=== PATIENT | male | born 1990 | race Caucasian/White ===

== ENCOUNTER 2021-04-14 21:34 | Inpatient (IN) | payer OTHER, MEDICAID, SELFPAY ==
--- NOTE | 2021-04-14 21:33 | DI.RAD.S_ITS ---
PROCEDURE: XR PELVIS 1-2V INDICATIONS: TRAUMA TECHNIQUE: Single-view of the pelvis acquired. COMPARISON: None. FINDINGS: Bones: No definite fractures or dislocations. No suspicious bony lesions. Soft tissues: Visualized bowel gas pattern is normal. No suspicious soft tissue calcifications. IMPRESSION: 1. No definite fracture or dislocation. Dictated by: Jw De Leon M.D. on 04/14/2021 at 22:57 Approved by: Jw De Leon M.D. on 04/14/2021 at 22:57
[2021-04-14 21:35] VITALS: BP 91/52; PULSE 86; RESP 20; TEMP 35; O2SAT 95
--- NOTE | 2021-04-14 21:36 | DI.RAD.S_ITS ---
PROCEDURE: XR CHEST 1V INDICATIONS: trauma TECHNIQUE: One view of the chest was acquired. COMPARISON: [facility], CT, CT CHEST ABD PEL W CON, 04/14/2021, 21:49. [facility], CR, CHEST 1 VIEW, 04/27/2008, 9:22. FINDINGS: Surgical changes and devices: None. Lungs and pleura: Trace left pneumothorax seen on concurrent CT not definitely identified on the current study. Minimal left pleural effusion seen on CT also not well seen on the current exam. There are few patchy indistinct bilateral opacities, left greater than right, which are nonspecific but may reflect pulmonary contusions. Mediastinum: Mediastinal contours appear normal. Heart size is normal. Bones and chest wall: There are mildly displaced fractures of the right 3rd through 6th ribs laterally. There is a minimally displaced fracture of the left 7th rib posteriorly. A mildly displaced fracture of the left distal clavicle is demonstrated. Overlying soft tissues appear unremarkable. IMPRESSION: 1. Patchy indistinct opacities in the lungs bilaterally are nonspecific but may reflect pulmonary contusions. 2. Bilateral rib fractures and distal left clavicular fracture. 3. Trace left pneumothorax and minimal left pleural effusions seen on the concurrent CT not well visualized on the current exam. Recommend correlation with concurrent CT. Dictated by: Jw De Leon M.D. on 04/14/2021 at 22:38 Approved by: Jw De Leon M.D. on 04/14/2021 at 22:40
--- NOTE | 2021-04-14 21:36 | DI.CT.S_ITS ---
PROCEDURE: CT CERVICAL SPINE WO CON INDICATIONS: Trauma TECHNIQUE: Noncontrast 3 mm thick sections acquired from the skull base to the T4 level. Sagittal and coronal reformats were then constructed. For radiation dose reduction, the following was used: automated exposure control, adjustment of mA and/or kV according to patient size. COMPARISON: [facility], CT, CT CHEST ABD PEL W CON, 04/14/2021, 21:49. FINDINGS: Image quality: There is motion artifact limiting evaluation. Bones: No definite fractures or subluxation. Visualized superior ribs appear intact. Soft tissues: Prevertebral soft tissues are normal in thickness. No paravertebral hematomas. The visualized lungs demonstrate a small left pleural effusion. There is a small left apical pneumothorax. IMPRESSION: 1. No definite fracture or subluxation with evaluation limited by motion artifact. 2. Small left apical pneumothorax and left pleural effusion partially visualized. Recommend correlation with concurrent study of the chest abdomen pelvis. Dictated by: Jw De Leon M.D. on 04/14/2021 at 22:05 Approved by: Jw De Leon M.D. on 04/14/2021 at 22:08
--- NOTE | 2021-04-14 21:36 | DI.CT.S_ITS ---
PROCEDURE: CT CHEST ABD PEL W CON INDICATIONS: Trauma TECHNIQUE: After the administration of intravenous contrast, 5 mm thick sections acquired from the lung apices to the symphysis. 2.5 mm thick coronal and sagittal reformats were acquired. Additional 7 mm thick coronal maximum intensity projection (MIP) reformats acquired through the lungs. Optional 10-minute delayed imaging may be performed from the kidneys to the bladder. For radiation dose reduction, the following was used: automated exposure control, adjustment of mA and/or kV according to patient size. COMPARISON: [facility], CT, CT CERVICAL SPINE WO CON, 04/14/2021, 21:49. FINDINGS: Image quality: There is motion artifact as well as beam hardening artifact limiting evaluation. CHEST: Lungs: There is a minimal left apical pneumothorax. Posterior ground-glass opacities are demonstrated within the lungs bilaterally suggestive of atelectasis but there are also suspected small pulmonary contusions posteriorly in the left lung. No definite pulmonary lacerations, with evaluation limited by motion artifact. There is a small left pleural effusion or hemothorax. No right effusion or right pneumothorax. Mediastinum: No mediastinal hematomas. Heart size is normal. No pericardial effusion. Thoracic aorta and pulmonary arteries demonstrate normal size and enhancement. No mediastinal or hilar adenopathy. Esophagus is normal in caliber. No hiatal hernia. Chest wall: There is a mildly displaced fracture of the left 7th rib posteriorly. There are also mildly displaced fractures of the right 3rd through 6th ribs posterolaterally. There is a minimally displaced non depressed sternal fracture. More inferiorly, there is also deformity the right aspect of the sternum suggestive of a prior sternal fracture. No retrosternal hematomas. There is a mildly displaced fracture of the distal left clavicle. No subcutaneous emphysema. No axillary or supraclavicular adenopathy. Thyroid gland demonstrates no discrete nodules. ABDOMEN: Solid organs: Liver is normal in size and enhancement, without lacerations. Gallbladder appears within normal limits without calcified gallstones. Biliary system is non-dilated. Pancreas enhances normally, without transection. Spleen is normal in size and enhancement, without lacerations. No adrenal hematomas. Both kidneys enhance normally, without hydronephrosis or lacerations. Peritoneum and bowel: No free fluid or air. Unenhanced bowel loops demonstrate normal wall thickness and caliber. Nodes and vessels: No retroperitoneal or mesenteric adenopathy. Aorta and inferior vena cava are normal in size and enhancement. Miscellaneous: No ventral hernias. PELVIS: Genitourinary: Bladder wall thickness is normal. Miscellaneous: There are posterior subcutaneous areas of fat stranding in the right gluteal region consistent with a soft tissue contusion. No inguinal hernias or adenopathy. Bones: Pelvic ring and hip joints appear intact. No vertebral compression fractures. IMPRESSION: 1. Trace left apical pneumothorax. 2. Minimal left hemothorax or pleural effusion. 3. Suspected small posterior left pulmonary contusions. 4. Minimally displaced acute sternal fracture as well as likely sequelae of a prior fracture in the inferior sternum. 5. Fractures of the left 7th and right 3rd through 6th ribs. 6. Mildly displaced fracture of the distal left clavicle. Findings discussed with Dr. Monae on 04/14/2021 at 10:15 p.m.. Dictated by: Jw De Leon M.D. on 04/14/2021 at 22:08 Approved by: Jw De Leon M.D. on 04/14/2021 at 22:19
--- NOTE | 2021-04-14 21:36 | DI.CT.S_ITS ---
PROCEDURE: CT HEAD/BRAIN WO CON INDICATIONS: Trauma TECHNIQUE: Noncontrast 4.5 mm thick angled axial sections acquired from the foramen magnum to the vertex, with coronal and sagittal reformats. For radiation dose reduction, the following was used: automated exposure control, adjustment of mA and/or kV according to patient size. COMPARISON: None. FINDINGS: Image quality: There is motion artifact markedly limiting evaluation. CSF spaces: Basal cisterns are patent. No extra-axial fluid collections. Ventricles are grossly normal in size. Brain: No definite intracranial hemorrhage, mass, or mass effect. Evaluation of the moss-white matter junction is limited by motion artifact. Skull and face: No definite fractures of the calvarium or visualized facial bones, with evaluation limited by motion artifact. Sinuses: Visualized sinuses and mastoids are clear. IMPRESSION: 1. Markedly limited study due to motion artifact demonstrates no definite acute intracranial abnormality. Dictated by: Jw De Leon M.D. on 04/14/2021 at 22:02 Approved by: Jw De Leon M.D. on 04/14/2021 at 22:05
[2021-04-14 22:12] VITALS: PULSE 83; RESP 20; O2SAT 92
[2021-04-14 22:18] LABS: Add Manual Diff / Slide Review NO; Basophils Absolute Auto 100 /uL (0-100); Basophils Percent Auto 0.2 % (0-2); Eosinophils Absolute Auto 0 /uL (0-450); Eosinophils Percent Auto 0.1 % (2-4); Hematocrit 42.6 % (41-53); Hemoglobin 14.4 g/dL (13.5-17.5); Lymphocytes Absolute Auto 1600 /uL (1100-4500); Lymphocytes Percent Auto 7.4 % (25-40); Mean Corpuscular HGB Conc 33.8 % (30-36); Mean Corpuscular Volume 88.8 fL (80-100); Monocytes Absolute Auto 1400 /uL (0-900); Monocytes Percent Auto 6.6 % (3-14); Neutrophils Absolute Auto 18400 /uL (1500-7000); Neutrophils Percent Auto 85.7 % (50-75); Platelet Count 353 X10^3/uL (150-400); Red Cell Distribution Width 14.1 % (11.6-14.8); White Blood Cell Count 21.5 X10^3/uL (4.5-11.0)
[2021-04-14 22:23] LABS: INR 1.2 (0.9-1.3); Prothrombin Time 14.1 SECONDS (10.1-12.7)
[2021-04-14 22:26] LABS: PTT Partial Thromboplastin Tim 31 SECONDS (26.4-36.2)
[2021-04-14] MEDS: SODIUM CHLORIDE 0.9% 1,000 ML 1000 ML IV (22:26)
[2021-04-14] MEDS: HYDROMORPHONE 1 MG INJ IV (22:26)
[2021-04-14 22:30] VITALS: BP 95/51; PULSE 82; RESP 12; O2SAT 94
[2021-04-14 22:34] LABS: Creatine Kinase 2402 U/L (55-170)
[2021-04-14 22:36] LABS: Alanine Aminotransferase 33 IU/L (<50); Albumin 3.8 g/dL (3.5-5.0); Albumin Globulin Ratio 1.3 (1.0-2.8); Alkaline Phosphatase 62 U/L (38-126); Aspartate Aminotransferase 78 IU/L (17-59); BUN Creatinine Ratio 13.2 (6-22); Bilirubin Total 0.4 mg/dL (0.2-1.3); Blood Urea Nitrogen 7 mg/dL (9-20); Carbon Dioxide 26 mmol/L (22-32); Chloride 108 mmol/L (98-107); Estimated Glomerular Filt Rate > 60.0 mL/min (>60); Ethanol (ETOH) 268 mg/dL; Glucose 131 mg/dL (70-100); HEMOLYSIS 24 (0-50); Lipase 38 U/L (23-300); Potassium 3.4 mmol/L (3.4-5.1); Sodium 144 mmol/L (137-145); Total Protein 6.8 g/dL (6.3-8.2)
[2021-04-14 22:38] LABS: COVID19 -Nasal RAPID Negative (Negative)
[2021-04-14 22:40] LABS: Troponin I < 0.012 ng/mL (0.01-0.034)
[2021-04-14 22:44] LABS: Lactate (Lactic Acid) 4.1 mmol/L (0.7-2.1)
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
[2021-04-14 23:00] VITALS: BP 99/55; PULSE 81; RESP 19; O2SAT 97
[2021-04-14 23:14] LABS: CKMB % Relative Index 1.4 % (1.5-5.0)
[2021-04-14 23:30] VITALS: BP 91/53; PULSE 82; RESP 14; O2SAT 95
[2021-04-14 23:59] LABS: COVID19 - ADMIT (NP swab/PCR) Negative (Negative)
[2021-04-15] VITALS (38 sets, daily range): BP systolic 102–127; BP diastolic 55–73; PULSE 74–114; RESP 10–20; TEMP 36.1–36.4; O2SAT 90–100; BMI 27.1
[2021-04-15 00:11] LABS: Ur Creatinine Normal (Normal); Ur Specific Gravity Normal (Normal); Urine pH Normal (Normal)
[2021-04-15 00:12] LABS: UR Morphine/Opiate cutoff 300 Negative (Negative); Urine Amphetamines Negative (Negative); Urine Barbiturates Negative (Negative); Urine Benzodiazepines Negative (Negative); Urine Cocaine Negative (Negative); Urine MDMA Negative (Negative); Urine Methadone Negative (Negative); Urine Methamphetamines Negative (Negative); Urine Oxycodone Negative (Negative); Urine Phencyclidine Negative (Negative); Urine Tetrahydrocannabinol Negative (Negative); Urine Tricyclic Antidepressant Negative (Negative)
[2021-04-15 00:13] LABS: Reflexed Lactate in 2 Hours Y
[2021-04-15 01:03] LABS: Lactate 2HR (Lactic Acid Rflx) 2.6 mmol/L (0.7-2.1)
[2021-04-15 01:31] LABS: Bacteria Urine None Seen; Culture Indicated Urine Cult Not Indicated; RBC Urine None Seen (0-5/HPF); Urine Comments Microscopic Normal; WBC Urine None Seen (0-5/HPF)
[2021-04-15] MEDS: LACTATED RINGERS 1,000 ML 125 ML IV ×2 (01:46→10:09)
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
[2021-04-15] MEDS: HYDROMORPHONE 2 MG INJ 1 MG IV ×4 (05:45→23:47)
[2021-04-15] MEDS: ACETAMINOPHEN 325 MG TABLET 650 MG PO ×2 (06:39→11:06)
--- NOTE | 2021-04-15 08:27 | DI.RAD.S_ITS ---
PROCEDURE: XR CHEST 2V INDICATIONS: ptx TECHNIQUE: 2 views of the chest were acquired. COMPARISON: [facility], CR, XR CHEST 1V, 04/14/2021, 21:33. FINDINGS: Surgical changes and devices: None. Lungs and pleura: Low lung volumes. No visible pneumothorax. Slightly increasing alveolar opacity in the right medial lower lung with thickening of the fissures. No significant pleural effusion visible. Mediastinum: Mediastinal contours are normal. Heart size is normal. Bones and chest wall: Several minimally displaced right rib fractures and nondisplaced left posterior 7th rib fracture. Mildly displaced left distal clavicle fracture with AC joint separation. IMPRESSION: 1. No visible left pneumothorax or large effusion. 2. Probable increasing atelectasis at the right medial lower lung, likely due to splinting and low lung volumes. 3. Ribs and left clavicle fractures as described. Dictated by: Kira Blum M.D. on 04/15/2021 at 11:31 Approved by: Kira Blum M.D. on 04/15/2021 at 11:36
--- NOTE | 2021-04-15 11:01 | PM.PN.EICU ---
Subjective Subjective :: This patient was seen via real time interactive two-way audiovisual telecommunication. Current Medications Current Medications Medications: Home Medications Ciprofloxacin Hydrochloride (Cipro) 0 PO * [place] DOSE/FREQUENCY #0 04/26/08 [History] Visit Medications (administered) Generic Name Dose Route Start Last Admin Trade Name Freq PRN Reason Stop Dose Admin Acetaminophen 650 mg 04/15/21 01:04/15/21 06:39 Acetaminophen 325 Mg Tablet PO 650 mg Q6HR PRN Administration Fever/Mild Pain (1-3) Hydromorphone HCl 1 mg 04/15/21 01:27 04/15/21 10:10 Hydromorphone 2 Mg Inj IV 1 mg Q4HR PRN Administration Pain, Severe (7-10) Lactated Ringer's 1,000 mls @ 125 mls/hr 04/15/21 01:04/15/21 10:09 Lactated Ringers IV 125 mls/hr CONT BELEN Administration Objective Labs Result Diagrams: 04/14/21 22:10 04/14/21 22:10 Labs: Laboratory Results - last 24 hr 04/14/21 04/14/21 04/14/21 22:10 22:10 22:10 WBC RBC Hgb Hct MCV MCH MCHC RDW Plt Count Neut % (Auto) Lymph % (Auto) [place] % (Auto) Eos % (Auto) Baso % (Auto) Neut # (Auto) Lymph # (Auto) [place] # (Auto) Eos # (Auto) Baso # (Auto) PT 14.1 H INR 1.2 APTT 31 Sodium Potassium Chloride Carbon Dioxide BUN Creatinine Estimated GFR BUN/Creatinine Ratio Glucose Lactate 4.1 H* Calcium Total Bilirubin AST ALT Alkaline Phosphatase Total Creatine Kinase 2402 H CK-MB (CK-2) 34.10 H CK-MB (CK-2) Rel Index 1.4 L Troponin I < 0.012 Total Protein Albumin Globulin Albumin/Globulin Ratio Lipase Urine RBC Urine WBC Urine Bacteria Ur Culture Indicated? Micro UA Comment Nasal Screen MRSA (PCR) U Opiates 300ng/mL cut Ur Oxycodone Screen Urine Methadone Screen Ur Barbiturates Screen U Tricyclic Antidepress Ur Phencyclidine Scrn Ur Amphetamines Screen U Methamphetamines Scrn Ur MDMA Scrn (Ecstasy) U Benzodiazepines Scrn Urine Cocaine Screen U Marijuana (THC) Screen Ethyl Alcohol SARS-CoV-2 (PCR) 04/14/21 04/14/21 04/14/21 22:10 22:10 22:10 WBC 21.5 H RBC 4.80 Hgb 14.4 Hct 42.6 MCV 88.8 MCH 30.0 MCHC 33.8 RDW 14.1 Plt Count 353 Neut % (Auto) 85.7 H Lymph % (Auto) 7.4 L [place] % (Auto) 6.6 Eos % (Auto) 0.1 L Baso % (Auto) 0.2 Neut # (Auto) 34873 H Lymph # (Auto) 1600 [place] # (Auto) 1400 H Eos # (Auto) 0 Baso # (Auto) 100 PT INR APTT Sodium 144 Potassium 3.4 Chloride 108 H Carbon Dioxide 26 BUN 7 L Creatinine 0.53 L Estimated GFR > 60.0 BUN/Creatinine Ratio 13.2 Glucose 131 H Lactate Calcium 9.0 Total Bilirubin 0.4 AST 78 H ALT 33 Alkaline Phosphatase 62 Total Creatine Kinase CK-MB (CK-2) CK-MB (CK-2) Rel Index Troponin I Total Protein 6.8 Albumin 3.8 Globulin 3.0 Albumin/Globulin Ratio 1.3 Lipase 38 Urine RBC Urine WBC Urine Bacteria Ur Culture Indicated? Micro UA Comment Nasal Screen MRSA (PCR) U Opiates 300ng/mL cut Ur Oxycodone Screen Urine Methadone Screen Ur Barbiturates Screen U Tricyclic Antidepress Ur Phencyclidine Scrn Ur Amphetamines Screen U Methamphetamines Scrn Ur MDMA Scrn (Ecstasy) U Benzodiazepines Scrn Urine Cocaine Screen U Marijuana (THC) Screen Ethyl Alcohol 268 H SARS-CoV-2 (PCR) Negative 04/14/21 04/15/21 04/15/21 23:15 00:04 00:04 WBC RBC Hgb Hct MCV MCH MCHC RDW Plt Count Neut % (Auto) Lymph % (Auto) [place] % (Auto) Eos % (Auto) Baso % (Auto) Neut # (Auto) Lymph # (Auto) [place] # (Auto) Eos # (Auto) Baso # (Auto) PT INR APTT Sodium Potassium Chloride Carbon Dioxide BUN Creatinine Estimated GFR BUN/Creatinine Ratio Glucose Lactate Calcium Total Bilirubin AST ALT Alkaline Phosphatase Total Creatine Kinase CK-MB (CK-2) CK-MB (CK-2) Rel Index Troponin I Total Protein Albumin Globulin Albumin/Globulin Ratio Lipase Urine RBC None seen Urine WBC None seen Urine Bacteria None seen Ur Culture Indicated? Cult not indicated Micro UA Comment Microscopic normal Nasal Screen MRSA (PCR) U Opiates 300ng/mL cut Negative Ur Oxycodone Screen Negative Urine Methadone Screen Negative Ur Barbiturates Screen Negative U Tricyclic Antidepress Negative Ur Phencyclidine Scrn Negative Ur Amphetamines Screen Negative U Methamphetamines Scrn Negative Ur MDMA Scrn (Ecstasy) Negative U Benzodiazepines Scrn Negative Urine Cocaine Screen Negative U Marijuana (THC) Screen Negative Ethyl Alcohol SARS-CoV-2 (PCR) Negative 04/15/21 04/15/21 00:40 01:30 WBC RBC Hgb Hct MCV MCH MCHC RDW Plt Count Neut % (Auto) Lymph % (Auto) [place] % (Auto) Eos % (Auto) Baso % (Auto) Neut # (Auto) Lymph # (Auto) [place] # (Auto) Eos # (Auto) Baso # (Auto) PT INR APTT Sodium Potassium Chloride Carbon Dioxide BUN Creatinine Estimated GFR BUN/Creatinine Ratio Glucose Lactate 2.6 H Calcium Total Bilirubin AST ALT Alkaline Phosphatase Total Creatine Kinase CK-MB (CK-2) CK-MB (CK-2) Rel Index Troponin I Total Protein Albumin Globulin Albumin/Globulin Ratio Lipase Urine RBC Urine WBC Urine Bacteria Ur Culture Indicated? Micro UA Comment Nasal Screen MRSA (PCR) Negative for mrsa U Opiates 300ng/mL cut Ur Oxycodone Screen Urine Methadone Screen Ur Barbiturates Screen U Tricyclic Antidepress Ur Phencyclidine Scrn Ur Amphetamines Screen U Methamphetamines Scrn Ur MDMA Scrn (Ecstasy) U Benzodiazepines Scrn Urine Cocaine Screen U Marijuana (THC) Screen Ethyl Alcohol SARS-CoV-2 (PCR) Exam Vital Signs (past 8 hours): - 04/15/21 03:07 04/15/21 03:30 04/15/21 04:00 Pulse Rate 87 89 90 Respiratory Rate 16 17 17 Blood Pressure 117/62 Pulse Oximetry 97 98 96 04/15/21 04:30 04/15/21 05:00 04/15/21 05:30 Pulse Rate 93 H 99 H 114 H Respiratory Rate 17 17 18 Blood Pressure 110/56 L Pulse Oximetry 94 94 96 04/15/21 06:00 04/15/21 06:01 04/15/21 06:30 Pulse Rate 95 H 97 H 95 H Respiratory Rate 14 16 17 Blood Pressure 125/60 Pulse Oximetry 96 96 95 04/15/21 07:00 04/15/21 07:30 04/15/21 08:00 Pulse Rate 96 H 100 H 101 H Respiratory Rate 18 17 17 Blood Pressure 114/63 118/59 L Pulse Oximetry 94 94 92 04/15/21 08:30 Pulse Rate 103 H Respiratory Rate 18 Blood Pressure Pulse Oximetry 91 Oxygen Delivery Method Nasal Cannula Oxygen Flow Rate 0 Assessment & Plan Assessment & Plan narrative: patient seen and examined with bedside nurse and provider chart/labs/imagigng reviewed currently afebrile HD stable, mild tachycardia no resp distress appears comfortable does not appear in withdrawal plan -pain control -incentive spirometer -surgery eval -ciwa protocol -thiamine/folate -torrey ivf while npo -minimize opiods use -gi/dvt ppx -call teleICU if condition changes Time Spent With Patient Critical Care time: I spent a total of [] minutes of critical care time on this patient's care today; this time is exclusive of procedural time.
[2021-04-15] MEDS: THIAMINE 100 MG TABLET PO (11:11)
[2021-04-15 16:18] LABS: Folate 13.5 ng/mL (2.76-20.0)
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
[2021-04-15] MEDS: KETOROLAC 30 MG/ML VIAL IV (18:20)
[2021-04-15] MEDS: IBUPROFEN 600 MG TABLET PO ×2 (18:20→23:47)
--- NOTE | 2021-04-15 22:28 | PC.NURSE ---
2000- Patient requests to be allowed to sleep. Assessment deferred to next medication order. Will monitor
[2021-04-16] VITALS (34 sets, daily range): BP systolic 95–132; BP diastolic 56–79; PULSE 77–114; RESP 13–34; TEMP 36.7–36.8; O2SAT 92–99
[2021-04-16] MEDS: IBUPROFEN 600 MG TABLET PO ×4 (05:02→23:38)
[2021-04-16] MEDS: HYDROMORPHONE 2 MG INJ 1 MG IV (05:02)
[2021-04-16 05:30] LABS: Add Manual Diff / Slide Review NO; Basophils Absolute Auto 100 /uL (0-100); Basophils Percent Auto 0.7 % (0-2); Eosinophils Absolute Auto 100 /uL (0-450); Eosinophils Percent Auto 1.1 % (2-4); Hematocrit 35.6 % (41-53); Hemoglobin 12.2 g/dL (13.5-17.5); Lymphocytes Absolute Auto 2100 /uL (1100-4500); Lymphocytes Percent Auto 21.6 % (25-40); Mean Corpuscular HGB Conc 34.3 % (30-36); Mean Corpuscular Hemoglobin 30.3 PG (26-34); Mean Corpuscular Volume 88.4 fL (80-100); Monocytes Absolute Auto 1100 /uL (0-900); Monocytes Percent Auto 11.2 % (3-14); Neutrophils Absolute Auto 6500 /uL (1500-7000); Neutrophils Percent Auto 65.4 % (50-75); Platelet Count 239 X10^3/uL (150-400); Red Blood Cell Count 4.03 X10^6/uL (4.5-5.9); Red Cell Distribution Width 14.5 % (11.6-14.8); White Blood Cell Count 9.9 X10^3/uL (4.5-11.0)
[2021-04-16 05:34] LABS: BUN Creatinine Ratio 19.1 (6-22); Blood Urea Nitrogen 13 mg/dL (9-20); Calcium 8.7 mg/dL (8.4-10.2); Carbon Dioxide 33 mmol/L (22-32); Chloride 104 mmol/L (98-107); Estimated Glomerular Filt Rate > 60.0 mL/min (>60); Glucose 123 mg/dL (70-100); HEMOLYSIS < 15 (0-50); Magnesium 1.7 mg/dL (1.6-2.3); Phosphorous 2.8 mg/dL (2.5-4.5); Sodium 137 mmol/L (137-145)
[2021-04-16] MEDS: HYDROMORPHONE 1 MG INJ IV ×3 (08:54→21:48)
[2021-04-16] MEDS: ACETAMINOPHEN 325 MG TABLET 650 MG PO (08:54)
[2021-04-16] MEDS: MAGNESIUM CHLORIDE 64 MG TABLET 128 MG PO (08:54)
[2021-04-16] MEDS: THIAMINE 100 MG TABLET PO (08:54)
[2021-04-16] MEDS: LORazepam 2 MG/ML INJ (09:24)
[2021-04-16] MEDS: MULTIVITAMIN 1 TABLET 1 TAB PO (09:24)
[2021-04-16] MEDS: NICOTINE 14 PATCH 14 MG TOP (09:24)
[2021-04-16] MEDS: FOLIC ACID 1 MG TABLET PO (09:24)
[2021-04-16] MEDS: LORazepam 2 MG/ML INJ IV ×4 (10:29→16:59)
[2021-04-16] MEDS: KETOROLAC 30 MG/ML VIAL IV ×2 (10:29→16:58)
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
--- NOTE | 2021-04-16 14:45 | PC.NURSE ---
Call to Dr Santos for increasing CIWA symptoms, order set added for CIWA protocol and Ativan PRN. Nicotine patch placed
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
[2021-04-16] MEDS: chlordiazePOXIDE 25 MG CAPSULE PO ×2 (15:19→21:37)
--- NOTE | 2021-04-16 16:37 | PM.PN.1 ---
Subjective Subjective Date Patient Seen: 04/16/21 Time Patient Seen: 16:37 Interval history: Heart rate is elevated today and is showing signs of withdrawal. Exam Vital Signs (past 8 hours): - 04/16/21 09:00 04/16/21 09:30 04/16/21 09:44 Pulse Rate 82 92 H 96 H Respiratory Rate 19 17 34 H Blood Pressure 108/78 112/65 Pulse Oximetry 98 95 04/16/21 10:00 04/16/21 10:30 04/16/21 10:49 Pulse Rate 96 H 96 H 101 H Respiratory Rate 17 14 20 Blood Pressure 112/65 128/75 Pulse Oximetry 92 95 04/16/21 11:00 04/16/21 11:30 04/16/21 11:43 Pulse Rate 100 H 114 H 104 H Respiratory Rate 18 25 H 20 Blood Pressure 128/75 117/64 Pulse Oximetry 94 04/16/21 12:00 04/16/21 12:30 04/16/21 13:00 Pulse Rate 108 H 111 H 111 H Respiratory Rate 20 13 18 Blood Pressure 117/64 105/67 Pulse Oximetry 04/16/21 13:30 04/16/21 13:58 04/16/21 14:00 Pulse Rate 113 H 114 H 113 H Respiratory Rate 22 30 H 18 Blood Pressure 132/79 132/79 Pulse Oximetry 04/16/21 14:30 04/16/21 15:00 04/16/21 15:30 Pulse Rate 112 H 111 H 108 H Respiratory Rate 19 20 22 Blood Pressure 125/70 Pulse Oximetry 95 95 04/16/21 16:00 Pulse Rate 111 H Respiratory Rate 22 Blood Pressure 95/60 Pulse Oximetry 96 Oxygen Delivery Method Room Air Oxygen Flow Rate 0 Const General: No acute distress Limitations: behavioral limitations Objective Labs Result Diagrams: 04/16/21 04:55 04/16/21 04:55 Labs: Laboratory Results - last 24 hr 04/16/21 04/16/21 04:55 04:55 WBC 9.9 D RBC 4.03 L Hgb 12.2 L Hct 35.6 L MCV 88.4 MCH 30.3 MCHC 34.3 RDW 14.5 Plt Count 239 Neut % (Auto) 65.4 D Lymph % (Auto) 21.6 L Grand % (Auto) 11.2 Eos % (Auto) 1.1 L Baso % (Auto) 0.7 Neut # (Auto) 6500 Lymph # (Auto) 2100 Grand # (Auto) 1100 H Eos # (Auto) 100 Baso # (Auto) 100 Sodium 137 Potassium 4.0 Chloride 104 Carbon Dioxide 33 H BUN 13 Creatinine 0.68 Estimated GFR > 60.0 BUN/Creatinine Ratio 19.1 Glucose 123 H Calcium 8.7 Phosphorus 2.8 Magnesium 1.7 PFSH Social History household members: none Smoking Status: Current every day smoker alcohol intake: current Assessment & Plan Assessment and plan (1) Closed fracture of distal clavicle: Problem details: Left distal clavicle fracture, closed. At this time fracture pattern. The minimal to non operative treatment recommend use of a sling full-time for the next 4 weeks except may come out for gentle pendulum exercises to avoid stiffness and may come out for hygiene. Would have him utilize sling follow up with Orthopedics in 1-2 weeks for repeat clavicle x-rays Status: Acute (2) Alcohol intoxication: Problem details: Withdrawal management per primary team. Qualifiers: Complication of substance-induced condition: uncomplicated Qualified Code(s): F10.920 - Alcohol use, unspecified with intoxication, uncomplicated Status: Acute Plan [facility] protocol for impending alcohol withdrawal Ortho consult for left clavicle fracture Time Spent With Patient Critical Care time: I spent a total of [] minutes of critical care time on this patient's care today; this time is exclusive of procedural time.
[2021-04-17] VITALS (16 sets, daily range): BP systolic 126–146; BP diastolic 62–87; PULSE 92–118; RESP 14–27; TEMP 36.6; O2SAT 94–97
[2021-04-17] MEDS: HYDROMORPHONE 1 MG INJ IV ×3 (03:37→12:13)
--- NOTE | 2021-04-17 04:07 | PC.NURSE ---
Addendum entered by Nancy Villalpando R.N. 04/17/21 04:11: Edit to note below: IV in LFA was present at the start of shift but was never documented. This RN added to IV assessment but was not sure on the date or time of placement. Original Note: Patient pulled out IV in RH around 0000. Tip was intact and site did not bleed. Patient has LFA IV that is still working and is saline locked. Pt has been resting in bed on and off throughout the shift. When RN enters the room patient will ask for Ativan, however, quickly falls back to sleep. Will monitor and administer medications per JUN.
[2021-04-17] MEDS: KETOROLAC 30 MG/ML VIAL IV ×2 (04:44→13:59)
[2021-04-17] MEDS: IBUPROFEN 600 MG TABLET PO ×2 (06:33→11:46)
[2021-04-17] MEDS: NICOTINE 14 PATCH 14 MG TOP (08:44)
[2021-04-17] MEDS: MULTIVITAMIN 1 TABLET 1 TAB PO (08:44)
[2021-04-17] MEDS: FOLIC ACID 1 MG TABLET PO (08:44)
[2021-04-17] MEDS: THIAMINE 100 MG TABLET PO (08:44)
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
--- NOTE | 2021-04-17 09:23 | DI.RAD.S_ITS ---
PROCEDURE: XR KNEE LT 1TO2V INDICATIONS: Pain trauma TECHNIQUE: 2 views of the knee were acquired. COMPARISON: None. FINDINGS: Limited given portable technique, specifically the lateral view is under penetrated. Bones: No fractures or dislocations. No suspicious bony lesions. Soft tissues: No joint effusion within limitations of this examination and obliquity of the lateral view. No suspicious soft tissue calcifications. Mild soft tissue prominence anteriorly. IMPRESSION: No acute osseous abnormality. Dictated by: Moises Gonzalez D.O. on 04/17/2021 at 8:58 Approved by: Moises Gonzalez D.O. on 04/17/2021 at 9:01
[2021-04-17] MEDS: LORazepam 2 MG/ML INJ IV ×3 (09:36→13:59)
--- NOTE | 2021-04-17 12:18 | CM.DPC ---
Addendum entered by Jaylin Perez R.N. 04/17/21 16:01: KYLER and HAIDER Capone were asked to meet with the patient who was angry, screaming at staff and being very aggressive. Security was called as a stand by while KYLER and HAIDER met with the patient at the bedside. Patient was visibility frustrated and stated he was in so much pain. Patient has been going to a suboxone clinic on [facility] and has an appointment there tomorrow but wants suboxone now to DC with from the hospital. HAIDER Capone explained to the patient that [facility] does not do Suboxone prescriptions and he would need to follow up with his appointment tomorrow on [place] or call [facility] that can possibly do a next day appointment. patients DR did agree to prescribed 24 hours worth of pain medication to get him to his appointment tomorrow. patient calmed down with this information and began to participate in DC planning conversation again. KYLER called [facility] for the patient and set the patient up with one night at the [facility] per the [employer] voucher program. patient does not have an ID currently so KYLER worked with the [facility] to get the hotel to waive the need for an ID and use his hospital band. patient agreed to this plan. Patients Aunt was at the bedside and was obviously frustrated with the patients situation and was expecting [facility] to provide an unrealistic intermission coordinator housing plan for the patient. KYLER and HAIDER Capone explained that we are not able to find senior living housing option from an acute care hospital. Care Management department supplies resources and helps with establish a plan with the patient but it is the responsibility of the patient to peruse those resource in finding adequate housing after discharge. patient was showing very little interest in any of the resources provided other than wanting pain medication and going to his appointment tomorrow. Patient Aunt was upset that SW did not call her yesterday when the patient arrived like the patients brother told her they would. HAIDER Capone explained that there is no SW consult or note in the chart from the patient or medical staff requesting SW involvement so was unaware of the need to contact her. Also CM and JEREMI do not call patients families with out the expressed approval from the patient when they are decisional. patients aunt agreed to drive the patient to the pharmacy to get his prescriptions filled and to the [facility] for the night. Patient was at this point requesting pain medication before he Discharges because he stated he was in a lot of pain. CM relayed that information to the patients nurse. CM provided the patient with written directions to the [facility] as well as written information for [facility] and [facility] that both have suboxone clinics. patient stated understanding. Jaylin Hagen [facility] Original Note: DCP continued: CM met with the patient at the bedside and gave him resources for warm shelters in [facility] and [facility]. Patient stated he doesn't plan to go to a group home but he kept the resources. CM gave the patient information on the [facility]'s motel voucher program and their phone number so he can call and set up a hotel room for a night or two. CM also gave the patient information about [facility] inpatient rehab in [place], which the patient stated he has been to before and liked it, So he could call and maybe get into their rehab. CM called [facility] in [place] to check on their availability but there new rule is they do not take patients who have not used within the last 24 hours so this is not an option for the patient. CM gave [facility] information so the patient can work on reestablishing with them and [facility] information. CM asked the patient what his plans are for DC he said he is going to go back to [facility]. CM asked if he has a place to go there. He said no. patients aunt Jacinda was at the bedside. CM asked if the plan is to go home with family patients aunt Jacinda said NO! Patient said no I will be homeless with the plan of calling [facility] for a motel voucher while he looks at other options for now. CM up dated the patients nurse and the MD about his plan. Jaylin Rivera
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
[2021-04-17] MEDS: OXYCODONE IR 5 MG TABLET PO (16:30)
--- NOTE | 2021-04-17 16:40 | P.PN_ITS ---
Subjective Subjective Date Patient Seen: 04/17/21 Interval history: Patient is complaining of pain all over but otherwise medically stable stable. He has history of homelessness, alcohol and opiate substance abuse and previously on Suboxone. He is not having any signs of significant ETOH withdrawal. Exam Vital Signs (past 8 hours): - 04/17/21 09:00 04/17/21 09:30 04/17/21 09:56 Pulse Rate 103 H 112 H 103 H Respiratory Rate 18 25 H 14 Blood Pressure 133/79 Pulse Oximetry 96 95 04/17/21 10:00 04/17/21 10:30 04/17/21 11:00 Pulse Rate 114 H 118 H 113 H Respiratory Rate 20 19 18 Blood Pressure 132/67 133/65 Pulse Oximetry 95 95 94 04/17/21 11:30 04/17/21 12:00 04/17/21 12:30 Pulse Rate 110 H 110 H 116 H Respiratory Rate 23 18 20 Blood Pressure 146/66 H Pulse Oximetry 96 96 95 04/17/21 14:19 Pulse Rate 100 H Respiratory Rate 14 Blood Pressure Pulse Oximetry Oxygen Delivery Method Room Air Oxygen Flow Rate 0 Narrative Exam Narrative: General: Alert and cooperative and in mild degree of discomfort Lungs: Breathing nonlabored Objective Labs Result Diagrams: 04/16/21 04:55 04/16/21 04:55 COUNT INCLUDES THE [facility] Medical History (Updated 04/17/21 @ 09:28 by Rachelle Medellin MD) Alcoholism Opioid use disorder Social History household members: none Smoking Status: Current every day smoker alcohol intake: current substance use type: heroin and opiates Assessment & Plan Assessment & Plan narrative: Patient admitted with multiple rib, sternal and clavicle fractures who is m edically stable for discharge. Not in active alcohol withdrawal. He was provided resources by social services assistant/care management. Time Spent With Patient Critical Care time: I spent a total of [] minutes of critical care time on this patient's care today; this time is exclusive of procedural time.
--- NOTE | 2021-04-17 16:46 | PC.NURSE ---
Discharge Note Patient A&O, discharge information reviewed with patient and aunt, all questions/concerns addressed as best possible but this RN. Patient reminded to pear picker prescriptions at [facility], reminded to follow-up with orthopedics in 1 to 2 weeks. PIV discontinued and assisted to dress patient, placed arm in sling. All belongings packed and given to patient. Patient did not sign discharge paperwork. Patient taken down via wheelchair to POV with aunt.
== END 2021-04-17 16:30 | disposition home or self-care (01) | DRG 200 ==
LOC: ED 23:27 → ICU 04-15 08:06
PROVIDERS: Internal Medicine Critical Care Medicine; Admitting Provider Surgery; Emergency Provider Emergency Medicine; Referring Provider Emergency Medicine; Visit Provider Surgery
DX: S27.0XXA Traumatic pneumothorax, initial encounter (principal); S22.41XA Multiple fractures of ribs, right side, initial encounter for closed fracture; S22.20XA Unspecified fracture of sternum, initial encounter for closed fracture; F10.239 Alcohol dependence with withdrawal, unspecified; S42.032A Displaced fracture of lateral end of left clavicle, initial encounter for closed fracture; F10.129 Alcohol abuse with intoxication, unspecified; Y90.8 Blood alcohol level of 240 mg/100 ml or more; S00.81XA Abrasion of other part of head, initial encounter; F17.210 Nicotine dependence, cigarettes, uncomplicated; Z20.822 Contact with and (suspected) exposure to COVID-19; M25.562 Pain in left knee; V89.2XXA Person injured in unspecified motor-vehicle accident, traffic, initial encounter; Y92.410 Unspecified street and highway as the place of occurrence of the external cause
CPT/HCPCS: 36415; 70450; 71045; 71260; 72125; 72170; 73560; 74177; 80048; 80053; 80305; 80320; 81003; 81015; 82550; 82553; 82746; 82962; 83605; 83690; 83735; 84100; 84484; 85025; 85610; 85730; 87635; 87797; 93005; 93010; 94762; 96361; 96374; 99221; 99231; 99238; 99285; C9803; J1170; J1885; J2060; Q9967

== ENCOUNTER 2021-06-08 18:20 | Emergency (ER) | payer OTHER, MEDICAID, SELFPAY ==
[2021-04-15 14:17] VITALS: BMI 27.1
[2021-06-08 18:24] VITALS: PULSE 92; RESP 24; TEMP 36.5; O2SAT 96
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
== END 2021-06-08 18:35 | disposition home or self-care (01) ==
PROVIDERS: Emergency Provider Emergency Medicine
DX: F11.10 Opioid abuse, uncomplicated (principal)
CPT/HCPCS: 99281

== ENCOUNTER 2021-07-13 13:34 | Observation (INO) | payer OTHER, MEDICAID, SELFPAY ==
[2021-04-15 14:17] VITALS: BMI 27.1
[2021-07-13] VITALS (12 sets, daily range): BP systolic 108–134; BP diastolic 62–90; PULSE 83–92; RESP 14–18; TEMP 36.8; O2SAT 95–100; BMI 28.8
--- NOTE | 2021-07-13 13:40 | DI.RAD.S_ITS ---
PROCEDURE: XR CHEST 1V INDICATIONS: suspected sepsis TECHNIQUE: One view of the chest was acquired. COMPARISON: [facility], CR, XR CHEST 2V, 04/15/2021, 10:35. FINDINGS: Surgical changes and devices: None. Lungs and pleura: Lungs are clear. No pleural effusions or pneumothorax. Mediastinum: Mediastinal contours appear normal. Heart size is normal. Bones and chest wall: No suspicious bony lesions. Overlying soft tissues appear unremarkable. IMPRESSION: No acute cardiopulmonary pathology. Dictated by: Navarro Carlson M.D. on 07/13/2021 at 13:52 Approved by: Navarro Carlson M.D. on 07/13/2021 at 13:53
--- NOTE | 2021-07-13 13:45 | ED.DENTAL ---
HPI - Dental/Oral General Chief complaint: Dental/Oral Stated complaint: Tooth abcess Time Seen by Provider: 07/13/21 13:37 Source: patient and EMS Mode of arrival: EMS History of Present Illness HPI Narrative: Patient is a 31-year-old male his history of substance abuse including alcohol and smoking opiates and meth presents today with right-sided facial swelling. He actually says that he has had facial swelling for couple of weeks but overnight got significantly worse. He has no difficulty swallowing or speaking but has obvious large amount of swelling on his face. He has not had any fever or chills. EMS on [facility] reports that he had an [place] lactate of 5 they gayatri blood cultures and gave him 2 g of Rocephin in the field. He has been hemodynamically stable for transport. He is now also complaining of some chest discomfort as well. He is requesting his Suboxone. He denies fever or chills. Related Data Home Medications Medication Instructions Recorded Confirmed sertraline 25 mg tablet (Zoloft) 25 mg PO DAILY 07/13/21 07/13/21 Allergies Allergy/AdvReac Type Severity Reaction Status Date / Time acetaminophen [From Vicodin] Allergy Unknown Verified 07/13/21 13:44 codeine Allergy Unknown Verified 07/13/21 13:44 hydrocodone [From Vicodin] Allergy Unknown Verified 07/13/21 13:44 Penicillins Allergy Unknown Verified 07/13/21 13:44 Review of Systems Review of Systems Narrative: GENERAL: Denies chills, fatigue, malaise, fever, sweats, travel HEENT: See HPI RESPIRATORY: Denies dyspnea, cough, wheezing, hemoptysis, sputum. CARDIOVASCULAR: Denies chest pain, palpitations, orthopnea, edema GASTROINTESTINAL: Denies nausea, vomiting, abdominal pain, diarrhea, constipation, melena. : Denies dysuria, frequency, incontinence, hematuria, urinary retention, flank pain. MUSCULOSKELETAL: Denies weakness, joint pain, or bony pain SKIN: No rash, no erythema, no pruritus NEUROLOGIC: Denies weakness, dizziness, headache, numbness, change in speech, confusion PSYCHIATRIC: No concerning psychosocial issues. 12 point review of systems is negative except for those stated above and HPI Patient History Medical History Alcoholism Opioid use disorder Social History household members: none Smoking Status: Current every day smoker alcohol intake: current substance use type: heroin and opiates Smoking Status: Current every day smoker alcohol intake frequency: 0-2 drinks per day Substance Use Type: does not use Exam Initial Vital Signs Initial Vital Signs: Vital Signs Temperature 98.3 F 07/13/21 13:35 Pulse Rate 86 07/13/21 13:35 Respiratory Rate 18 07/13/21 13:35 Blood Pressure 132/90 07/13/21 13:35 Pulse Oximetry 99 07/13/21 13:35 GENERAL: 31-year-old male who has significant right-sided facial swelling HEENT: Head atraumatic significant facial swelling no erythema no obvious dental abscess or facial abscess managing own secretions no stridor CARDIOVASCULAR: Regular rate and rhythm without murmurs, rubs or gallops. RESPIRATORY: Breath sounds equal bilaterally, no wheezes rales or rhonchi. EXTREMITIES: Normal range of motion, no clubbing or edema. Neurovascularly intact NEUROLOGICAL: Alert and oriented x4.Normal gait and speech. SKIN: Warm, dry, no laceration, no petechiae, no rashes or lesions. Course Orders Ordered: Acetaminophen (Acetaminophen 325 Mg Tablet) 975 mg PO Q8H PRN PRN Reason: Pain, Mild (1-3) Buprenorphine/Naloxone (Buprenorphine/Naloxone 8mg/2mg 1 Tab) 1 tab SL TID [facility] Last Admin: 07/13/21 22:50 Dose: 1 tab Documented by: Admin: 07/13/21 17:50 Dose: 1 tab Documented by: ABIDA Sodium Chloride (Normal Saline 0.9%) 1,000 mls @ 100 mls/hr IV CONT [facility] Last Admin: 07/13/21 17:49 Dose: 100 mls/hr Documented by: ABIDA Clindamycin Phosphate (Cleocin) 600 mg in 50 mls @ 50 mls/hr IV Q8H [facility] Last Admin: 07/14/21 01:35 Dose: 50 mls/hr Documented by: Infusion: 07/13/21 19:45 Dose: 0 mls/hr Documented by: Admin: 07/13/21 17:30 Dose: 50 mls/hr Documented by: ABIDA Levofloxacin (Levaquin) 750 mg in 150 mls @ 100 mls/hr IV Q24H [facility] Last Infusion: 07/13/21 21:50 Dose: 0 mls/hr Documented by: Admin: 07/13/21 20:20 Dose: 100 mls/hr Documented by: CTRSHELLY Vancomycin HCl/Dextrose (Vancomycin) 1,500 mg in 300 mls @ 200 mls/hr IV Q8H [facility] Last Infusion: 07/14/21 00:26 Dose: 0 mls/hr Documented by: Admin: 07/13/21 22:51 Dose: 200 mls/hr Documented by: CTRSHELLY Ibuprofen (Ibuprofen 400 Mg Tablet) 800 mg PO Q8HR PRN PRN Reason: Pain, Mild (1-3) Last Admin: 07/13/21 22:48 Dose: 800 mg Documented by: CTRSHELLY Ondansetron HCl (Ondansetron 4 Mg/2 Ml Inj) 4 mg IV Q8HR PRN PRN Reason: Nausea And Vomiting Sertraline HCl (Sertraline 50 Mg Tablet) 25 mg PO DAILY [facility] Vancomycin HCl (Vancomycin Peak) 1 request MISC 1730 [facility] Stop: 07/14/21 17:31 Vancomycin HCl (Vancomycin Trough) 1 request MISC 1430 [facility] Stop: 07/14/21 14:31 Discontinued Medications Acetaminophen (Acetaminophen 325 Mg Tablet) 975 mg PO NOW ONE Stop: 07/13/21 13:50 Last Admin: 07/13/21 13:56 Dose: 975 mg Documented by: CRISTI Sodium Chloride (Normal Saline 0.9%) 1,000 mls @ 1,000 mls/hr IV BOLUS ONE Stop: 07/13/21 14:39 Last Infusion: 07/13/21 15:30 Dose: 0 mls/hr Documented by: Admin: 07/13/21 14:22 Dose: 1,000 mls/hr Documented by: JAZLYN Vancomycin HCl/Dextrose (Vancomycin) 1,500 mg in 300 mls @ 200 mls/hr IV NOW ONE Stop: 07/13/21 16:39 Last Infusion: 07/13/21 17:06 Dose: 0 mls/hr Documented by: Admin: 07/13/21 15:20 Dose: 200 mls/hr Documented by: JAZLYN Ibuprofen (Ibuprofen 400 Mg Tablet) 800 mg PO NOW ONE Stop: 07/13/21 13:50 Last Admin: 07/13/21 13:56 Dose: 800 mg Documented by: CRISTI Vital Signs Vital signs: Vital Signs - 8 hr 07/13/21 13:35 07/13/21 13:58 07/13/21 14:00 Temperature 98.3 F Pulse Rate 86 92 H 83 Respiratory Rate 18 14 Blood Pressure 132/90 134/88 Pulse Oximetry 99 99 100 07/13/21 14:12 07/13/21 14:30 07/13/21 15:00 Temperature Pulse Rate 90 90 84 Respiratory Rate 17 16 16 Blood Pressure 132/82 124/75 116/76 Pulse Oximetry 100 98 98 07/13/21 15:30 07/13/21 16:00 Temperature Pulse Rate 87 86 Respiratory Rate 15 16 Blood Pressure 116/73 115/69 Pulse Oximetry 96 95 MDM - Dental/Oral Lab Data Result diagrams: 07/13/21 14:50 07/13/21 14:50 Labs: Lab Results 07/13/21 07/13/21 07/13/21 Range/Units 14:50 14:50 14:50 WBC 11.2 H (4.5-11.0) X10^3/uL RBC 4.61 (4.5-5.9) X10^6/uL Hgb 13.8 (13.5-17.5) g/dL Hct 40.1 L (41-53) % MCV 87.0 (80-100) fL MCH 29.9 (26-34) PG MCHC 34.4 (30-36) % RDW 13.1 (11.6-14.8) % Plt Count 287 (150-400) X10^3/uL Neut % (Auto) 76.4 H (50-75) % Lymph % (Auto) 15.3 L (25-40) % Spink % (Auto) 7.4 (3-14) % Eos % (Auto) 0.6 L (2-4) % Baso % (Auto) 0.3 (0-2) % Neut # (Auto) 8600 H (5728-2215) /uL Lymph # (Auto) 1700 (2997-7809) /uL Spink # (Auto) 800 (0-900) /uL Eos # (Auto) 100 (0-450) /uL Baso # (Auto) 0 (0-100) /uL Sodium 136 L (137-145) mmol/L Potassium 3.8 (3.4-5.1) mmol/L Chloride 101 (98-107) mmol/L Carbon Dioxide 29 (22-32) mmol/L BUN 6 L (9-20) mg/dL Creatinine 0.42 L (0.66-1.25) mg/dL Estimated GFR > 60.0 (>60) mL/min BUN/Creatinine Ratio 14.3 (6-22) Glucose 99 (70-100) mg/dL Lactate 1.2 (0.7-2.1) mmol/L Calcium 8.3 L (8.4-10.2) mg/dL Total Bilirubin 0.4 (0.2-1.3) mg/dL AST 20 (17-59) IU/L ALT 12 (<50) IU/L Alkaline Phosphatase 81 (38-126) U/L Total Protein 7.0 (6.3-8.2) g/dL Albumin 3.7 (3.5-5.0) g/dL Globulin 3.3 (1.7-4.1) g/dL Albumin/Globulin Ratio 1.1 (1.0-2.8) Lipase 17 L (23-300) U/L Procalcitonin < 0.03 (<0.5) ng/mL Ethyl Alcohol ( - 10) mg/dL 07/13/21 Range/Units 14:50 WBC (4.5-11.0) X10^3/uL RBC (4.5-5.9) X10^6/uL Hgb (13.5-17.5) g/dL Hct (41-53) % MCV (80-100) fL MCH (26-34) PG MCHC (30-36) % RDW (11.6-14.8) % Plt Count (150-400) X10^3/uL Neut % (Auto) (50-75) % Lymph % (Auto) (25-40) % Spink % (Auto) (3-14) % Eos % (Auto) (2-4) % Baso % (Auto) (0-2) % Neut # (Auto) (9455-3035) /uL Lymph # (Auto) (9528-1091) /uL Spink # (Auto) (0-900) /uL Eos # (Auto) (0-450) /uL Baso # (Auto) (0-100) /uL Sodium (137-145) mmol/L Potassium (3.4-5.1) mmol/L Chloride (98-107) mmol/L Carbon Dioxide (22-32) mmol/L BUN (9-20) mg/dL Creatinine (0.66-1.25) mg/dL Estimated GFR (>60) mL/min BUN/Creatinine Ratio (6-22) Glucose (70-100) mg/dL Lactate (0.7-2.1) mmol/L Calcium (8.4-10.2) mg/dL Total Bilirubin (0.2-1.3) mg/dL AST (17-59) IU/L ALT (<50) IU/L Alkaline Phosphatase (38-126) U/L Total Protein (6.3-8.2) g/dL Albumin (3.5-5.0) g/dL Globulin (1.7-4.1) g/dL Albumin/Globulin Ratio (1.0-2.8) Lipase (23-300) U/L Procalcitonin (<0.5) ng/mL Ethyl Alcohol < 10 ( - 10) mg/dL Imaging Data Chest x-ray: Radiologist's Impression: PROCEDURE:? XR CHEST 1V ? INDICATIONS:? suspected sepsis ? TECHNIQUE:? One view of the chest was acquired.? ? COMPARISON:? [facility], , XR CHEST 2V, 04/15/2021, 10:35. ? FINDINGS:? ? Surgical changes and devices:? None.? ? Lungs and pleura:? Lungs are clear.? No pleural effusions or pneumothorax.? ? Mediastinum:? Mediastinal contours appear normal.? Heart size is normal.? ? Bones and chest wall:? No suspicious bony lesions.? Overlying soft tissues appear unremarkable.? ? IMPRESSION:? No acute cardiopulmonary pathology. ? ? Dictated by: Navarro Carlson M.D. on 07/13/2021 at 13:52 ? CT soft tissure: Radiologist's Impression: PROCEDURE:? CT SOFT TISSUE NECK W CON ? INDICATIONS:? right sided facial abcess ? TECHNIQUE:? After the administration of intravenous contrast, 3.0 mm axial sections acquired from the sella to the aortic arch.? Additional oblique axial 3.0 mm sections acquired through the pharynx.? 3 mm thick coronal and sagittal reformats were generated.? For radiation dose reduction, the following was used:? automated exposure control.? ? COMPARISON:? None. ? FINDINGS:? Image quality:? Excellent.? ? Lymph nodes:? Mildly enlarged right submandibular lymph node measures 1.4 cm in short axis, likely reactive. ? Vessels:? Visualized vasculature appears patent.? ? Neck spaces:? There is diffuse soft tissue edema in the right premaxillary/perimandibular area, consistent with cellulitis.? An ill-defined hypodensity is seen in the right perimandibular area, most likely represent phlegmon.? No drainable fluid collections. ? The oropharynx, nasopharynx, and pharynx demonstrate no mucosal lesions.? The vocal cords, false vocal cords, pyriform sinuses, epiglottis, vallecula, and tongue base all appear normal.? Extramucosal spaces appear unremarkable.? ? Glands:? The parotid and submandibular glands appear normal.? Thyroid gland is normal.? ? Miscellaneous:? Visualized brain and orbits appear normal.? Lung apices appear clear.? Superficial soft tissues appear normal. ? Bones:? Lucencies in the left mandible in the area of the premolar teeth are likely dental caries.? Old right anterior 3rd and 4th rib fractures are noted.? No suspicious bony lesions.? Visualized sinuses and mastoids appear unremarkable.? ? ? IMPRESSION:? ? 1. There is diffuse soft tissue swelling in the right pre maxillary and perimandibular area consistent with cellulitis. ? 2. Ill-defined hypodensity in the right perimandibular area is compatible with phlegmon.? No drainable fluid collection is present at this time. ? 3. Mild right submandibular lymphadenopathy, likely reactive. ? 4. Suspect dental caries in the right lower jaw.? Recommend clinical correlation. ? ? ? Dictated by: Ventura Walker M.D. on 07/13/2021 at 14:28 ? ? ECG Data Interpretation: Normal sinus rhythm rate 81 SC interval 184 QRS 90 QTC 411 MDM Narrative Medical decision making narrative: Patient is found have significant swelling of the right side of his face no airway compromise. No abscess to be drained at this time possibly a small phlegmon is but it is not drainable. [place] lactic acid was 5, blood cultures and Rocephin were given in the field. Repeat blood cultures were drawn here in addition to vancomycin given. Patient was also complaining of chest pain and discomfort. Patient was actually admitted and went up to the floor before EKG was done, fortunately it is normal Discharge Plan Departure Patient Disposition: Admitted As Inpatient Clinical Impression: Cellulitis, face Admit Date/Time: 07/13/21 16:17 Admit Provider: Matt Kapadia
--- NOTE | 2021-07-13 13:46 | DI.CT.S_ITS ---
PROCEDURE: CT SOFT TISSUE NECK W CON INDICATIONS: right sided facial abcess TECHNIQUE: After the administration of intravenous contrast, 3.0 mm axial sections acquired from the sella to the aortic arch. Additional oblique axial 3.0 mm sections acquired through the pharynx. 3 mm thick coronal and sagittal reformats were generated. For radiation dose reduction, the following was used: automated exposure control. COMPARISON: None. FINDINGS: Image quality: Excellent. Lymph nodes: Mildly enlarged right submandibular lymph node measures 1.4 cm in short axis, likely reactive. Vessels: Visualized vasculature appears patent. Neck spaces: There is diffuse soft tissue edema in the right premaxillary/perimandibular area, consistent with cellulitis. An ill-defined hypodensity is seen in the right perimandibular area, most likely represent phlegmon. No drainable fluid collections. The oropharynx, nasopharynx, and pharynx demonstrate no mucosal lesions. The vocal cords, false vocal cords, pyriform sinuses, epiglottis, vallecula, and tongue base all appear normal. Extramucosal spaces appear unremarkable. Glands: The parotid and submandibular glands appear normal. Thyroid gland is normal. Miscellaneous: Visualized brain and orbits appear normal. Lung apices appear clear. Superficial soft tissues appear normal. Bones: Lucencies in the left mandible in the area of the premolar teeth are likely dental caries. Old right anterior 3rd and 4th rib fractures are noted. No suspicious bony lesions. Visualized sinuses and mastoids appear unremarkable. IMPRESSION: 1. There is diffuse soft tissue swelling in the right pre maxillary and perimandibular area consistent with cellulitis. 2. Ill-defined hypodensity in the right perimandibular area is compatible with phlegmon. No drainable fluid collection is present at this time. 3. Mild right submandibular lymphadenopathy, likely reactive. 4. Suspect dental caries in the right lower jaw. Recommend clinical correlation. Dictated by: Ventura Walker M.D. on 07/13/2021 at 14:28 Approved by: Ventura Walker M.D. on 07/13/2021 at 14:50
[2021-07-13] MEDS: IBUPROFEN 400 MG TABLET 800 MG PO ×2 (13:56→22:48)
[2021-07-13] MEDS: ACETAMINOPHEN 325 MG TABLET 975 MG PO (13:56)
[2021-07-13] MEDS: SODIUM CHLORIDE 0.9% 1,000 ML 1000 ML IV (14:22)
[2021-07-13 15:10] LABS: Add Manual Diff / Slide Review NO; Basophils Absolute Auto 0 /uL (0-100); Basophils Percent Auto 0.3 % (0-2); Eosinophils Absolute Auto 100 /uL (0-450); Eosinophils Percent Auto 0.6 % (2-4); Hematocrit 40.1 % (41-53); Hemoglobin 13.8 g/dL (13.5-17.5); Lymphocytes Absolute Auto 1700 /uL (1100-4500); Lymphocytes Percent Auto 15.3 % (25-40); Mean Corpuscular HGB Conc 34.4 % (30-36); Mean Corpuscular Hemoglobin 29.9 PG (26-34); Monocytes Absolute Auto 800 /uL (0-900); Monocytes Percent Auto 7.4 % (3-14); Neutrophils Absolute Auto 8600 /uL (1500-7000); Neutrophils Percent Auto 76.4 % (50-75); Platelet Count 287 X10^3/uL (150-400); Red Blood Cell Count 4.61 X10^6/uL (4.5-5.9); Red Cell Distribution Width 13.1 % (11.6-14.8); White Blood Cell Count 11.2 X10^3/uL (4.5-11.0)
[2021-07-13] MEDS: VANCOMYCIN 1,500 MG/300 ML PIGGYBACK 200 MG IV ×2 (15:20→22:51)
[2021-07-13 15:28] LABS: Alanine Aminotransferase 12 IU/L (<50); Albumin 3.7 g/dL (3.5-5.0); Albumin Globulin Ratio 1.1 (1.0-2.8); Alkaline Phosphatase 81 U/L (38-126); Aspartate Aminotransferase 20 IU/L (17-59); BUN Creatinine Ratio 14.3 (6-22); Bilirubin Total 0.4 mg/dL (0.2-1.3); Blood Urea Nitrogen 6 mg/dL (9-20); Calcium 8.3 mg/dL (8.4-10.2); Carbon Dioxide 29 mmol/L (22-32); Chloride 101 mmol/L (98-107); Estimated Glomerular Filt Rate > 60.0 mL/min (>60); Globulin 3.3 g/dL (1.7-4.1); Glucose 99 mg/dL (70-100); HEMOLYSIS < 15 (0-50); Lipase 17 U/L (23-300); Potassium 3.8 mmol/L (3.4-5.1); Sodium 136 mmol/L (137-145)
[2021-07-13 15:30] LABS: Ethanol (ETOH) < 10 mg/dL; Lactate (Lactic Acid) 1.2 mmol/L (0.7-2.1)
[2021-07-13 15:44] LABS: Procalcitonin < 0.03 ng/mL (<0.5)
[2021-07-13] MEDS: CLINDAMYCIN 600 MG/50 ML PIGGYBACK 50 MG IV (17:30)
[2021-07-13 17:34] LABS: COVID19 -Nasal RAPID Negative (Negative)
--- NOTE | 2021-07-13 17:39 | PM.HP.1 ---
History of Present Illness History of Present Illness Date Patient Seen: 07/13/21 Time Patient Seen: 17:30 Chief complaint: Tooth abcess Narrative: Mr. Castaneda is a 31M with H EtOH abuse, tobacco use, smoking opiates and meth who presents to the hospital with right sided facial swelling. He noted having swelling in his face initially three weeks ago. He has had no fevers/chills. He has no difficulty swallowing or breathing. He has seen no physician for this. EMS was called due to his worsening swelling. He was given rocephin, and blood cultures were drawn and he was transported to the hospital. In the ED workup was done, vitals notable for no fever. Labs notable for WBC 11.2, creatinine 0.42. Lactate 1.2. Procal <0.03. Chest xray with no acute process. CT neck showed diffuse soft tissue swelling in the right premaxilary and perimandibular region, phlegmon was also noted, but no abscess. He was admitted for further treatment. Patient History Medical History Alcoholism Opioid use disorder Family & Social History Social History: household members none Safety & Behavioral: Feels Safe in Current Yes Environment Tobacco & Substance use: Tobacco type cigarettes Smoking Status Current every day smoker alcohol intake current alcohol intake frequency 0-2 drinks per day Substance Use Type does not use Meds Home Medications and Allergies Home Medications Medication Instructions Recorded Confirmed Type oxycodone-acetaminophen 5 mg-325 1 tab PO Q8H PRN #7 tab 04/17/21 Rx mg tablet (Percocet) Allergies Allergy/AdvReac Type Severity Reaction Status Date / Time acetaminophen [From Vicodin] Allergy Unknown Verified 07/13/21 13:44 codeine Allergy Unknown Verified 07/13/21 13:44 hydrocodone [From Vicodin] Allergy Unknown Verified 07/13/21 13:44 Penicillins Allergy Unknown Verified 07/13/21 13:44 Review of Systems Review of Systems Narrative: 14 point review of systems noted and negative aside from what is noted in HPI Exam Vital Signs (past 8 hours): - 07/13/21 13:35 07/13/21 13:58 07/13/21 14:00 Temperature 98.3 F Pulse Rate 86 92 H 83 Respiratory Rate 18 14 Blood Pressure 132/90 134/88 Pulse Oximetry 99 99 100 07/13/21 14:12 07/13/21 14:30 07/13/21 15:00 Temperature Pulse Rate 90 90 84 Respiratory Rate 17 16 16 Blood Pressure 132/82 124/75 116/76 Pulse Oximetry 100 98 98 07/13/21 15:30 07/13/21 16:00 07/13/21 16:29 Temperature Pulse Rate 87 86 85 Respiratory Rate 15 16 16 Blood Pressure 116/73 115/69 Pulse Oximetry 96 95 96 07/13/21 16:30 Temperature Pulse Rate Respiratory Rate Blood Pressure 112/67 Pulse Oximetry Oxygen Delivery Method Room Air Narrative Exam Narrative: GEN: no acute distress HEENT: marked swelling of right facial with greatest tenderness below midjawline, very poor dentition, no stridor, no speech difficulties NECK: trachea midline, no JVD CV: regular rate and rhythm, no murmurs PULM: clear bilaterally ABD: soft, nontender, nondistended, no organomegaly, normal bowel sounds EXT: warm and well perfused with no edema NEURO: no focal deficits Objective Labs Result Diagrams: 07/13/21 14:50 07/13/21 14:50 Labs: Laboratory Results - last 24 hr 07/13/21 07/13/21 07/13/21 14:50 14:50 14:50 WBC 11.2 H RBC 4.61 Hgb 13.8 Hct 40.1 L MCV 87.0 MCH 29.9 MCHC 34.4 RDW 13.1 Plt Count 287 Neut % (Auto) 76.4 H Lymph % (Auto) 15.3 L Titus % (Auto) 7.4 Eos % (Auto) 0.6 L Baso % (Auto) 0.3 Neut # (Auto) 8600 H Lymph # (Auto) 1700 [place]itus # (Auto) 800 Eos # (Auto) 100 Baso # (Auto) 0 Sodium 136 L Potassium 3.8 Chloride 101 Carbon Dioxide 29 BUN 6 L Creatinine 0.42 L Estimated GFR > 60.0 BUN/Creatinine Ratio 14.3 Glucose 99 Lactate 1.2 Calcium 8.3 L Total Bilirubin 0.4 AST 20 ALT 12 Alkaline Phosphatase 81 Total Protein 7.0 Albumin 3.7 Globulin 3.3 Albumin/Globulin Ratio 1.1 Lipase 17 L Procalcitonin < 0.03 Ethyl Alcohol SARS-CoV-2 (PCR) 07/13/21 07/13/21 14:50 16:37 WBC RBC Hgb Hct MCV MCH MCHC RDW Plt Count Neut % (Auto) Lymph % (Auto) Titus % (Auto) Eos % (Auto) Baso % (Auto) Neut # (Auto) Lymph # (Auto) Titus # (Auto) Eos # (Auto) Baso # (Auto) Sodium Potassium Chloride Carbon Dioxide BUN Creatinine Estimated GFR BUN/Creatinine Ratio Glucose Lactate Calcium Total Bilirubin AST ALT Alkaline Phosphatase Total Protein Albumin Globulin Albumin/Globulin Ratio Lipase Procalcitonin Ethyl Alcohol < 10 SARS-CoV-2 (PCR) Negative Assessment & Plan Assessment & Plan narrative: 1. Acute facial cellulitis -likely dental in origin -started empiric antibiotics with clindamycin and levofloxacin as has listed penicillin allergy -also added vancomycin given substance abuse history, check MRSA swab -follow up cultures -monitor size closely, may need repeat CT or ENT consult if not improving 2. Opiate abuse and dependence -continue suboxone 3. Tobacco abuse -declines nicotine patch 4. History of alcohol abuse -last drink 3 weeks ago -EtOH level negative -low risk for withdrawal 5. Depression -continue zoloft CODE: Full Proxy: Odilia Cash, mother I have utilized all available resources to reconcile the patient's home medications Time Spent With Patient Critical Care time: I spent a total of [] minutes of critical care time on this patient's care today; this time is exclusive of procedural time. Quality MIPS - Admit I confirm the patient?s Advance Care Plan is present, Code status is documented, Surrogate decision maker is in patient?s record [If Yes, STOP here]: Yes
[2021-07-13] MEDS: SODIUM CHLORIDE 0.9% 1,000 ML 100 ML IV (17:49)
[2021-07-13] MEDS: BUPRENORPHINE/NALOXONE 8MG/2MG 1 TAB SL ×2 (17:50→22:50)
[2021-07-13 19:39] LABS: UR Morphine/Opiate cutoff 300 Negative (Negative); Ur Creatinine Normal (Normal); Ur Specific Gravity Normal (Normal); Urine Amphetamines Negative (Negative); Urine Barbiturates Negative (Negative); Urine Benzodiazepines Negative (Negative); Urine Cocaine Negative (Negative); Urine MDMA Negative (Negative); Urine Methadone Negative (Negative); Urine Methamphetamines Negative (Negative); Urine Oxycodone Negative (Negative); Urine Phencyclidine Negative (Negative); Urine Tetrahydrocannabinol Negative (Negative); Urine Tricyclic Antidepressant Negative (Negative); Urine pH Normal (Normal)
[2021-07-13] MEDS: levoFLOXacin 750 MG/150 ML PIGGYBACK 100 MG IV (20:20)
[2021-07-14] MEDS: CLINDAMYCIN 600 MG/50 ML PIGGYBACK 50 MG IV ×2 (01:35→09:33)
[2021-07-14 01:41] VITALS: BP 118/72; PULSE 79; RESP 18; TEMP 36.6; O2SAT 98
[2021-07-14] MEDS: VANCOMYCIN 1,500 MG/300 ML PIGGYBACK 200 MG IV (06:36)
[2021-07-14] MEDS: BUPRENORPHINE/NALOXONE 8MG/2MG 1 TAB SL (08:25)
[2021-07-14] MEDS: IBUPROFEN 400 MG TABLET 800 MG PO (08:25)
[2021-07-14] MEDS: ACETAMINOPHEN 325 MG TABLET 975 MG PO (08:26)
[2021-07-14] MEDS: SERTRALINE 50 MG TABLET 25 MG PO (08:26)
[2021-07-14 08:40] VITALS: O2SAT 97
--- NOTE | 2021-07-14 09:23 | CM.DANOTE ---
Addendum entered by Rody York R.N. 07/14/21 10:48: Spoke to [place] at [employer] transport, can't have patient picked up, no drivers available until later today. Called [employer], verified that they have free service to ferry terminal. Let them know that ferry is at 11:20, and they can mixing picker tender at ER entrance at 11:00. Updated charge nurse, Lyric, and she will take him downstairs. He already has ferry voucher. Addendum entered by Rody York R.N. 07/14/21 10:10: Sent over fax for Medicaid transport, as his ferry is at 11:20 Original Note: DCP: Case received, EMR reviewed and met with patient. Introduced self and role. Was able to obtain information from patient regarding his current living situation, and some medical information. DCP assessment completed with information currently available. Patient came to the hospital via ambulance from [facility] to the care of the hospitalist team. PCP: Patient will not disclose Payer: confirmed: [facility] . Patient came to the hospital via ambulance secondary to having swelling to his cheek. Patient holds diagnosis of Acute Facial Cellulitis. Patient has history of ETOH abuse, as smoking opiates. Met with patient in his room. He is alert and oriented, denies current drug use. He is on Suboxone. He resides alone on [address]. He stated, he does have a primary care provider, but does not want to say who it is. He has a license to drive, but no car. He stated, he has no money to get to the ferry, and will need help with a cab. Let him know that it is uncertain if he will discharge today. P: Patient has discharge orders today. He will be getting a ferry voucher, and will see if he can get a taxi to the ferry. Rody York RN/Admissions Representative Discharge Planning/Care Management CM Discharge Assessment Start: 07/14/21 09:22 Freq: Status: Active Protocol: Document 07/14/21 09:22 (Rec: 07/14/21 09:23 [email or web address]) Discharge Planning Assessment Assigned Oyster Grader Rody York RN/Admissions Representative Advance Directives? No History Provided By Patient Prior Living Arrangements Mobile home Household Members none Type of transporation used prior to Drives own vehicle admit Comment He has his license, but no vehicle. Independent with ADL's Yes Is patient alert and oriented? Yes Caregiver for Another No Discharge Plan Home Transportation Arrangement Will need cab [facility]. Referrals Initiated None needed Whiteboard Updated in Patient Room with Yes name and ext. # of Oyster Grader Review Status In Process Next Review Type Continued Stay Review
--- NOTE | 2021-07-14 10:33 | PC.NURSE ---
Day shift: Paperwork signed and all questions answered. Swelling/infection rt face/tooth much improved today. D/c home with PO antibiotics per Dr Kauffman. Encouraged to take all PO antibiotics as directed. Both IV's removed. Pt has all personal belongings. Pt is taking a taxi to [employer] and with ferry to [place] on the [address].
--- NOTE | 2021-07-14 10:57 | PC.NURSE ---
Day shift: Left unit at approx 1045.
--- NOTE | 2021-07-14 20:31 | PM.DS.1 ---
History of Present Illness History of Present Illness Chief complaint: Tooth abcess Narrative: Mr. Castaneda is a 31M with H EtOH abuse, tobacco use, smoking opiates and meth who presents to the hospital with right sided facial swelling. He noted having swelling in his face initially three weeks ago. He has had no fevers/chills. He has no difficulty swallowing or breathing. He has seen no physician for this. EMS was called due to his worsening swelling. He was given rocephin, and blood cultures were drawn and he was transported to the hospital. In the ED workup was done, vitals notable for no fever. Labs notable for WBC 11.2, creatinine 0.42. Lactate 1.2. Procal <0.03. Chest xray with no acute process. CT neck showed diffuse soft tissue swelling in the right premaxilary and perimandibular region, phlegmon was also noted, but no abscess. He was admitted for further treatment. Discharge Providers Provider Date of admission: 07/13/21 16:17 Discharge Date: 07/14/21 Discharge provider: Matt Kapadia MD Summary Hospital Course Discharge Diagnosis: 1. Acute facial cellulitis 2. Opiate abuse and dependence 3. Tobacco abuse 4. History of alcohol abuse 5. Depression Hospital Course: Mr. Castaneda was admitted with a facial cellulitis. He quickly improved with IV antibiotics initially broad spectrum and then narrowed to Unasyn. He had no evidence of abscess on CT scan. He had quite poor dentition which is the likely source and he was encouraged to have expedited follow up with his dentist. He was discharged on a course of levofloxacin and clindamycin given penicillin allergy. Exam Vital Signs (past 8 hours): Oxygen Delivery Method Room Air Oxygen Flow Rate 0 Narrative Exam Narrative: GEN: no acute distress HEENT: marked swelling of right facial with greatest tenderness below midjawline, very poor dentition, no stridor, no speech difficulties NECK: trachea midline, no JVD CV: regular rate and rhythm, no murmurs PULM: clear bilaterally ABD: soft, nontender, nondistended, no organomegaly, normal bowel sounds EXT: warm and well perfused with no edema NEURO: no focal deficits Objective Labs Result Diagrams: 07/13/21 14:50 07/13/21 14:50 [facility] Medical History Alcoholism Opioid use disorder Social History household members: none Smoking Status: Current every day smoker alcohol intake: current substance use type: heroin and opiates Discharge Plan Discharge Plan Patient Disposition: Home Provider Discharge Comment: Mr. Castaneda came in with facial cellulitis likely from his tooth. He improved with antibiotics and is given antibiotics to take at home. He should follow up with a dentist as soon as possible. Discharge orders & Medications Prescriptions: New clindamycin HCl 300 mg capsule 600 mg PO TID Qty: 27 0RF levofloxacin 750 mg tablet 750 mg PO DAILY Qty: 9 0RF Continued sertraline [Zoloft] 25 mg Tablet 25 mg PO DAILY 0RF Diet/Activity/Treatments Diet: Regular Visit Report/Discharge Packet Instructions: DI for Cellulitis -- Adult, DI for Tooth Abscess, Clindamycin Discharge Data Attending Provider: Matt Kapadia
== END 2021-07-14 10:58 | disposition home or self-care (01) ==
LOC: ED 15:56 → AC 17:07
PROVIDERS: Admitting Provider Internal Medicine; Emergency Provider Emergency Medicine; Referring Provider Emergency Medicine; Visit Provider Internal Medicine
DX: K04.7 Periapical abscess without sinus (principal); L03.211 Cellulitis of face; R07.9 Chest pain, unspecified; F17.210 Nicotine dependence, cigarettes, uncomplicated; F32.A Depression, unspecified; Z79.891 Long term (current) use of opiate analgesic; F10.11 Alcohol abuse, in remission; F11.11 Opioid abuse, in remission; Z20.822 Contact with and (suspected) exposure to COVID-19
CPT/HCPCS: 70491; 71045; 80053; 80305; 80320; 83605; 83690; 84145; 85025; 87040; 87635; 87797; 93005; 93010; 96365; 96366; 96367; 99284; C9803; G0378; J1956